=== PATIENT | male | born 1985 | race Caucasian/White ===

== ENCOUNTER 2020-11-26 09:18 | Outpatient (REF) | payer OTHER, SELFPAY ==
--- NOTE | 2020-11-26 09:30 | XR_ITS ---
EXAMINATION: XR LUMBOSACRAL SPINE CLINICAL INFORMATION: Low back pain COMPARISON: None TECHNIQUE: Three views of the lumbosacral spine. FINDINGS: There is normal lumbar lordosis. The vertebral heights, alignment and disc heights are normal. There is no acute fracture, dislocation or subluxation seen. There is mild ventral spondylosis. No lytic process. The paravertebral soft tissues are normal. XR/XR lumbar spine 2-3V IMPRESSION: Unremarkable lumbar spine exam.
[2020-11-26 10:15] LABS: Hematocrit 50.5 % (42-52); Hemoglobin 17.3 g/dl (14.0-18.0); Mean Corpuscular HGB Conc 34.3 g/dl (31.0-36.0); Mean Corpuscular Hemoglobin 30.8 pg (27.0-33.0); Mean Platelet Volume 10.3 fL (9.4-12.4); Platelet Count 210 X10*3/uL (160-400); Red Blood Count 5.61 X10*6/uL (4.60-5.80); Red Cell Distribution Width 11.8 % (11.0-16.0)
[2020-11-26 10:30] LABS: Alanine Aminotransferase 39 U/L (0-40); Albumin Level 4.5 g/dL (3.5-5.0); Alkaline Phosphatase 48 U/L (39-117); Anion Gap 11 (12-20); Aspartate Amino Transferase 22 U/L (5-37); Bilirubin Total 1.1 mg/dL (0.0-1.0); Blood Urea Nitrogen 19 mg/dL (9-16); Carbon Dioxide 28 mmol/L (22-29); Chloride 104 mmol/L (96-108); Cholesterol 158 mg/dL; Estimated Glomerular Filt Rate > 60; Glucose Fasting 94 mg/dL (60-99); HDL Cholesterol 38 mg/dL; LDL Cholesterol Calculated 104 mg/dl; Potassium 4.6 mmol/l (3.3-5.1); Sodium 138 mmol/L (135-145); Total Protein 6.8 g/dL (6.5-8.0); Triglycerides 80 mg/dL
== END 2020-11-26 09:19 | disposition home or self-care (01) ==
LOC: HO.LAB 09:18
PROVIDERS: PCP Internal Medicine; Visit Provider Internal Medicine
DX: M54.5 Low back pain (principal); E66.9 Obesity, unspecified
CPT/HCPCS: 36415; 72100; 80053; 80061; 85027

== ENCOUNTER 2020-12-15 08:32 | Outpatient (REF) | payer OTHER, SELFPAY ==
--- NOTE | 2020-12-15 08:37 | EMG_ITS ---
Bilateral median and ulnar motor and sensory studies were performed. Bilateral radial sensory studies were performed and paraspinal muscles were tested. IMPRESSION: 1. Moderately severe bilateral median neuropathy across carpal tunnel. 2. Mild right ulnar neuropathy across cubital tunnel. 3. Bilateral Chaz Amberly anastomosis, a normal variant. MD BRAXTON Gordon/JAZMYN / [id number]
== END 2020-12-15 08:33 | disposition home or self-care (01) ==
LOC: HO.NEURO 08:32
PROVIDERS: Visit Provider Internal Medicine
DX: M79.643 Pain in unspecified hand (principal)
CPT/HCPCS: 95886; 95911